=== PATIENT | male | born 1980 | race Two or more races ===

== ENCOUNTER 2024-07-28 17:30 | Inpatient (IN) | payer OTHER ==
[~2024-07-28] VITALS: Ht 180.3 cm; Wt 85.5 kg
[2024-07-28 18:20] LABS: BASOPHILS % (AUTO) 0.5 % (0.0-2.0); EOSINOPHILS % (AUTO) 0.3 % (1.0-6.0); HEMOGLOBIN 15.6 g/dL (13.5-17.5); LYMPHOCYTES # (AUTO) 2.8 K/uL (1.0-4.8); LYMPHOCYTES % (AUTO) 30.2 % (22.0-44.0); MEAN CORPUSCULAR HEMOGLOBIN 31.3 pg (26.0-34.0); MEAN CORPUSCULAR VOLUME 92 fL (80-100); MONOCYTES # (AUTO) 0.7 K/uL (0.1-1.0); MONOCYTES % (AUTO) 7.4 % (2.0-9.0); NEUTROPHILS # (AUTO) 5.8 K/uL (1.8-7.7); NEUTROPHILS % (AUTO) 61.6 % (40.0-70.0); PLATELET COUNT (AUTO) 254 K/uL (150-450); RED CELL DISTRIBUTION WIDTH 12.7 % (11.5-14.5); WHITE BLOOD COUNT (AUTO) 9.4 K/uL (4.5-11.0)
[2024-07-28 18:30] LABS: ALCOHOL, BLOOD (SERUM) < 3 mg/dL (0-10)
[2024-07-28 18:40] LABS: ANION GAP 7 mmol/L (8-16); CALCIUM, TOTAL 8.9 mg/dL (8.8-10.5); CARBON DIOXIDE 30 mmol/L (22-29); CHLORIDE 104 mmol/L (98-107); CREATININE 1.03 mg/dL (0.60-1.30); GLOMERULAR FILTR. RATE CALC > 60 mL/min (>60); GLUCOSE,RANDOM 146 mg/dL (70-110); POTASSIUM 4.3 mmol/L (3.5-5.1); SODIUM SERUM 141 mmol/L (136-145); UREA NITROGEN, BLOOD 25 mg/dL (7-18)
[2024-07-28 18:55] LABS: COVID AG,FIA SOURCE NASAL SWAB
[2024-07-28] MEDS ORDERED: MAGNESIUM HYDROXIDE SUSPENSION 30 ML UDCUP PO PRN (19:00)
[2024-07-28] MEDS ORDERED: ZOLPIDEM TARTRATE 5 MG TABLET PO PRN (19:00)
[2024-07-28] MEDS ORDERED: ACETAMINOPHEN 325 MG TABLET PO PRN (19:00)
[2024-07-28 19:12] LABS: SARS-COV2 (COVID) ANTIGEN,FIA Negative (Negative)
[2024-07-28 21:43] VITALS: BP 126/70; PULSE 59; RESP 18; TEMP 97.9; O2SAT 98
[2024-07-29 03:36] LABS: APPEARANCE,URINE TURBID (CLEAR); BILIRUBIN,URINE NEGATIVE (NEGATIVE); COLOR,URINE YELLOW (YELLOW); GLUCOSE, URINE (UA) NEGATIVE (NEGATIVE); KETONES,URINE NEGATIVE (NEGATIVE); LEUKOCYTE ESTERASE ,URINE NEGATIVE (NEGATIVE); NITRATE,URINE NEGATIVE (NEGATIVE); OCCULT BLOOD,URINE NEGATIVE (NEGATIVE); PROTEIN,URINE TRACE mg/dL (NEGATIVE); SPECIFIC GRAVITIY, URINE 1.028 (1.003-1.030); UROBILINOGEN,URINE <=1.0 mg/dL (<=1.0)
[2024-07-29 03:44] LABS: ALCOHOL, URINE DRUG SCREEN NEGATIVE (NEGATIVE); AMPHET/METH SCREEN,URINE NEGATIVE (NEGATIVE); BARBITURATE SCREEN, URINE NEGATIVE (NEGATIVE); BENZODIAZEPINES SCREEN,URINE NEGATIVE (NEGATIVE); CANNABINOID SCREEN,URINE NEGATIVE (NEGATIVE); COCAINE SCREEN,URINE NEGATIVE (NEGATIVE); METHADONE SCREEN, URINE NEGATIVE (NEGATIVE); OPIATE SCREEN,URINE NEGATIVE (NEGATIVE); PHENCYCLIDINE SCREEN,URINE NEGATIVE (NEGATIVE)
[2024-07-29 04:05] VITALS: BP 116/67; PULSE 58; RESP 18; TEMP 97.7; O2SAT 97
[2024-07-29] MEDS: FAMOTIDINE 20 MG TABLET PO SCH (08:37)
[2024-07-29 09:10] VITALS: BP 122/68; PULSE 62; RESP 18; TEMP 97.9; O2SAT 96
[2024-07-29] MEDS ORDERED: DiphenhydrAMINE HCL 50 MG/ML VIAL ONE (11:30)
[2024-07-29] MEDS ORDERED: LORazepam 2 MG/ML VIAL ONE (11:30)
[2024-07-29] MEDS ORDERED: CITA10TA99 PO (12:03)
[2024-07-29] MEDS ORDERED: HYDR50CA7 PO (12:04)
[2024-07-29] MEDS: DiphenhydrAMINE HCL 50 MG/ML VIAL IM ONE (12:26)
[2024-07-29] MEDS: ChlorproMAZINE HCL 50 MG/2 ML AMP IM ONE (12:26)
[2024-07-29] MEDS: LORazepam 2 MG/ML VIAL IM ONE (12:26)
[2024-07-29 21:31] VITALS: BP 106/73; PULSE 88; RESP 17; TEMP 97.6; O2SAT 95
[2024-07-30 05:45] VITALS: BP 125/80; PULSE 69; RESP 18; TEMP 97.9; O2SAT 98
[2024-07-30] MEDS: KETOROLAC TROMETHAMINE 30 MG/ML VIAL IVP ONE (14:41)
[2024-07-30] MEDS ORDERED: CITA10TA99 PO (15:27)
[2024-07-30] MEDS ORDERED: HYDR50CA7 PO (15:28)
[2024-07-30] MEDS ORDERED: IBUP-2124 PO (15:34)
[2024-07-30] MEDS ORDERED: IBUP-2342 PO (15:36)
[2024-07-30] MEDS: DiphenhydrAMINE HCL 50 MG/ML VIAL IM ONE (16:42)
[2024-07-30] MEDS: HALOPERIDOL LACTATE 5 MG/ML VIAL IM ONE (16:44)
[2024-07-30] MEDS: LORazepam 2 MG/ML VIAL IM ONE (16:45)
== END 2024-07-30 22:00 | DRG 885 ==
LOC: EMS 17:30 → EDH 18:58 → 6S 20:40 → 6N 07-29 18:25
PROVIDERS: ADMIT Internal Medicine; ATTEND Internal Medicine
PROC: GZ56ZZZ Individual Psychotherapy, Supportive (ICD-10-PCS; principal; 2024-07-29)
DX: F25.1 Schizoaffective disorder, depressive type (principal); R45.851 Suicidal ideations; I10 Essential (primary) hypertension; Z20.822 Contact with and (suspected) exposure to COVID-19; F43.10 Post-traumatic stress disorder, unspecified
CPT/HCPCS: 73218; 80048; 80307; 81003; 85025; 99285; G0480; J1200; J1630; J1885; J2060; J3230

== ENCOUNTER 2024-08-07 15:51 | Inpatient (IN) | payer OTHER ==
[~2024-08-07] VITALS: Ht 177.8 cm; Wt 85.0 kg
[~2024-08-07 15:51] MED LIST: CITA10TA99 PO; HYDR50CA7 PO; IBUP-2342 PO
[2024-08-07] MEDS: BACITRACIN 0.9 GM PACKET OINTMENT TP ONE (17:23)
[2024-08-07] MEDS: HydrOXYzine PAMOATE 50 MG CAPSULE PO ONE (17:23)
[2024-08-07 18:07] LABS: BASOPHILS % (AUTO) 0.4 % (0.0-2.0); EOSINOPHILS % (AUTO) 0.6 % (1.0-6.0); HEMATOCRIT 40.8 % (41-53); HEMOGLOBIN 14.1 g/dL (13.5-17.5); LYMPHOCYTES # (AUTO) 3.2 K/uL (1.0-4.8); MEAN CORPUSCULAR HEMOGLOBIN 31.8 pg (26.0-34.0); MEAN CORPUSCULAR HGB CONC 34.4 G/dL (31.0-37.0); MEAN CORPUSCULAR VOLUME 92 fL (80-100); MONOCYTES # (AUTO) 1.2 K/uL (0.1-1.0); MONOCYTES % (AUTO) 11.6 % (2.0-9.0); NEUTROPHILS % (AUTO) 57.4 % (40.0-70.0); PLATELET COUNT (AUTO) 242 K/uL (150-450); RED BLOOD CELL COUNT(AUTO) 4.42 MIL/uL (4.50-5.90); RED CELL DISTRIBUTION WIDTH 13.1 % (11.5-14.5); WHITE BLOOD COUNT (AUTO) 10.5 K/uL (4.5-11.0)
[2024-08-07 18:11] LABS: ANION GAP 9 mmol/L (8-16); CALCIUM, TOTAL 8.6 mg/dL (8.8-10.5); CARBON DIOXIDE 26 mmol/L (22-29); CHLORIDE 104 mmol/L (98-107); CREATININE 1.05 mg/dL (0.60-1.30); GLOMERULAR FILTR. RATE CALC > 60 mL/min (>60); GLUCOSE,RANDOM 139 mg/dL (70-110); POTASSIUM 3.6 mmol/L (3.5-5.1); SODIUM SERUM 139 mmol/L (136-145); UREA NITROGEN, BLOOD 19 mg/dL (7-18)
[2024-08-07 18:13] LABS: ALCOHOL, BLOOD (SERUM) < 3 mg/dL (0-10)
[2024-08-07] MEDS ORDERED: ONDANSETRON HCL 4 MG/2 ML VIAL IVP PRN (18:45)
[2024-08-07] MEDS: ACETAMINOPHEN 325 MG TABLET PO PRN (19:16)
[2024-08-07] MEDS: DOCUSATE SODIUM 100 MG CAPSULE PO SCH (21:00)
[2024-08-07 22:00] VITALS: BP 132/82; PULSE 70; RESP 20; TEMP 97.8; O2SAT 95
[2024-08-07] MEDS: HEPARIN SODIUM,PORCINE 5,000 UNITS/ML VIAL SQ SCH (23:30)
[2024-08-08 01:32] LABS: AMPHET/METH SCREEN,URINE NEGATIVE (NEGATIVE); BARBITURATE SCREEN, URINE NEGATIVE (NEGATIVE); BENZODIAZEPINES SCREEN,URINE NEGATIVE (NEGATIVE); CANNABINOID SCREEN,URINE NEGATIVE (NEGATIVE); COCAINE SCREEN,URINE NEGATIVE (NEGATIVE); METHADONE SCREEN, URINE NEGATIVE (NEGATIVE); OPIATE SCREEN,URINE NEGATIVE (NEGATIVE); PHENCYCLIDINE SCREEN,URINE NEGATIVE (NEGATIVE)
[2024-08-08 01:39] LABS: ALCOHOL, URINE DRUG SCREEN NEGATIVE (NEGATIVE)
[2024-08-08 04:29] VITALS: BP 110/76; PULSE 57; RESP 18; TEMP 97.7; O2SAT 96
[2024-08-08 06:33] LABS: BASOPHILS % (AUTO) 0.6 % (0.0-2.0); EOSINOPHILS % (AUTO) 2.7 % (1.0-6.0); HEMATOCRIT 41.3 % (41-53); HEMOGLOBIN 14.1 g/dL (13.5-17.5); LYMPHOCYTES # (AUTO) 3.3 K/uL (1.0-4.8); LYMPHOCYTES % (AUTO) 47.6 % (22.0-44.0); MEAN CORPUSCULAR HEMOGLOBIN 31.5 pg (26.0-34.0); MEAN CORPUSCULAR VOLUME 93 fL (80-100); MONOCYTES % (AUTO) 14.5 % (2.0-9.0); NEUTROPHILS # (AUTO) 2.4 K/uL (1.8-7.7); NEUTROPHILS % (AUTO) 34.6 % (40.0-70.0); PLATELET COUNT (AUTO) 237 K/uL (150-450); RED BLOOD CELL COUNT(AUTO) 4.47 MIL/uL (4.50-5.90); RED CELL DISTRIBUTION WIDTH 12.8 % (11.5-14.5)
[2024-08-08 06:40] LABS: ANION GAP 7 mmol/L (8-16); CALCIUM, TOTAL 8.6 mg/dL (8.8-10.5); CARBON DIOXIDE 29 mmol/L (22-29); CHLORIDE 105 mmol/L (98-107); CREATININE 0.98 mg/dL (0.60-1.30); GLOMERULAR FILTR. RATE CALC > 60 mL/min (>60); GLUCOSE,RANDOM 86 mg/dL (70-110); SODIUM SERUM 141 mmol/L (136-145); UREA NITROGEN, BLOOD 19 mg/dL (7-18)
[2024-08-08 08:08] VITALS: BP 120/77; PULSE 57; RESP 18; TEMP 97.9; O2SAT 98
[2024-08-08] MEDS: OLANZapine 5 MG TABLET PO SCH (13:43)
[2024-08-08] MEDS: CITALOPRAM HYDROBROMIDE 20 MG TABLET PO SCH (13:45)
[2024-08-08 16:46] VITALS: BP 113/75; PULSE 59; RESP 18; TEMP 97.8; O2SAT 100
[2024-08-08 19:24] VITALS: BP 119/81; PULSE 72; RESP 20; TEMP 98; O2SAT 97
[2024-08-08] MEDS: MELATONIN 3 MG TABLET PO PRN (20:32)
[2024-08-09 04:54] VITALS: BP 109/72; PULSE 53; RESP 20; TEMP 98.1; O2SAT 98
[2024-08-09 08:05] VITALS: BP 116/72; PULSE 77; RESP 18; TEMP 98; O2SAT 98
[2024-08-09 19:38] VITALS: BP 114/72; PULSE 74; RESP 18; TEMP 97.7; O2SAT 96
[2024-08-10 04:25] VITALS: BP 115/70; PULSE 60; RESP 19; TEMP 97.4; O2SAT 96
[2024-08-10 07:55] VITALS: BP 119/82; PULSE 60; RESP 18; TEMP 97.8; O2SAT 100
[2024-08-10] MEDS ORDERED: CITA-144 PO (11:01)
[2024-08-10] MEDS ORDERED: OLAN5TAB52 PO (11:01)
== END 2024-08-10 19:10 | DRG 641 ==
LOC: EMS 15:51 → EDH 18:43 → 6N 21:35
PROVIDERS: ADMIT Internal Medicine; ATTEND Internal Medicine
PROC: GZ52ZZZ Individual Psychotherapy, Cognitive (ICD-10-PCS; principal; 2024-08-10)
DX: R73.9 Hyperglycemia, unspecified (principal); F25.1 Schizoaffective disorder, depressive type; S51.812A Laceration without foreign body of left forearm, initial encounter; X58.XXXA Exposure to other specified factors, initial encounter; Y93.89 Activity, other specified; Y92.89 Other specified places as the place of occurrence of the external cause; Y99.8 Other external cause status; Z79.899 Other long term (current) drug therapy
CPT/HCPCS: 80048; 80307; 83735; 85025; 87081; 99285; G0480; J1644

== ENCOUNTER 2024-08-14 11:34 | Inpatient (IN) | payer OTHER ==
[~2024-08-14] VITALS: Ht 177.8 cm; Wt 84.1 kg
[~2024-08-14 11:34] MED LIST changes: +CITA-144 PO; -CITA10TA99 PO; -HYDR50CA7 PO; -IBUP-2342 PO; +OLAN5TAB52 PO
[2024-08-14 12:39] LABS: BASOPHILS % (AUTO) 0.6 % (0.0-2.0); EOSINOPHILS % (AUTO) 0.8 % (1.0-6.0); HEMATOCRIT 41.5 % (41-53); HEMOGLOBIN 14.2 g/dL (13.5-17.5); LYMPHOCYTES # (AUTO) 2.6 K/uL (1.0-4.8); LYMPHOCYTES % (AUTO) 28.6 % (22.0-44.0); MEAN CORPUSCULAR HEMOGLOBIN 31.5 pg (26.0-34.0); MEAN CORPUSCULAR HGB CONC 34.1 G/dL (31.0-37.0); MEAN CORPUSCULAR VOLUME 92 fL (80-100); MONOCYTES # (AUTO) 0.9 K/uL (0.1-1.0); MONOCYTES % (AUTO) 9.4 % (2.0-9.0); NEUTROPHILS # (AUTO) 5.6 K/uL (1.8-7.7); NEUTROPHILS % (AUTO) 60.6 % (40.0-70.0); PLATELET COUNT (AUTO) 275 K/uL (150-450); RED CELL DISTRIBUTION WIDTH 13.1 % (11.5-14.5); WHITE BLOOD COUNT (AUTO) 9.2 K/uL (4.5-11.0)
[2024-08-14 12:52] LABS: ANION GAP 9 mmol/L (8-16); CALCIUM, TOTAL 8.7 mg/dL (8.8-10.5); CARBON DIOXIDE 28 mmol/L (22-29); CHLORIDE 103 mmol/L (98-107); CREATININE 1.09 mg/dL (0.60-1.30); GLOMERULAR FILTR. RATE CALC > 60 mL/min (>60); GLUCOSE,RANDOM 108 mg/dL (70-110); POTASSIUM 4.2 mmol/L (3.5-5.1); SODIUM SERUM 140 mmol/L (136-145); UREA NITROGEN, BLOOD 19 mg/dL (7-18)
[2024-08-14] MEDS ORDERED: BUPR-344 PO (12:53)
[2024-08-14 12:56] LABS: ALCOHOL, BLOOD (SERUM) < 3 mg/dL (0-10)
[2024-08-14 12:58] LABS: COVID AG,FIA SOURCE NASAL SWAB
[2024-08-14] MEDS ORDERED: BUPR-559 PO (12:58)
[2024-08-14] MEDS ORDERED: BUPR-433 PO (13:00)
[2024-08-14] MEDS: ACETAMINOPHEN 500 MG TABLET PO ONE (13:02)
[2024-08-14] MEDS: PERTUSS(ACELL),DIPH,TET/PF 0.5 ML SYRINGE [ADULT] IM. ONE (13:03)
[2024-08-14] MEDS: BuPROPion HCL 150 MG SR TABLET PO ONE (13:03)
[2024-08-14] MEDS: BACITRACIN 0.9 GM PACKET OINTMENT TP ONE (13:03)
[2024-08-14] MEDS: HydrOXYzine PAMOATE 50 MG CAPSULE PO ONE (13:03)
[2024-08-14] MEDS: CITALOPRAM HYDROBROMIDE 10 MG TABLET PO ONE (13:03)
[2024-08-14 13:27] LABS: SARS-COV2 (COVID) ANTIGEN,FIA Negative (Negative)
[2024-08-14] MEDS ORDERED: ONDANSETRON HCL 4 MG/2 ML VIAL IVP PRN (15:00)
[2024-08-14] MEDS ORDERED: MAGNESIUM HYDROXIDE SUSPENSION 30 ML UDCUP PO PRN (15:00)
[2024-08-14] MEDS ORDERED: BISACODYL 10 MG RECTAL RECTAL SUPPOSITORY PR PRN (15:00)
[2024-08-14] MEDS: HEPARIN SODIUM,PORCINE 5,000 UNITS/ML VIAL SQ SCH (15:05)
[2024-08-14] MEDS: DOCUSATE SODIUM 100 MG CAPSULE PO SCH (20:10)
[2024-08-14] MEDS: OLANZapine 5 MG TABLET PO SCH (21:30)
[2024-08-14 22:57] VITALS: BP 128/85; PULSE 61; RESP 17; TEMP 97.8; O2SAT 98
[2024-08-15 04:24] VITALS: BP 111/69; PULSE 63; RESP 18; TEMP 97.7; O2SAT 97
[2024-08-15 06:01] LABS: AMPHET/METH SCREEN,URINE NEGATIVE (NEGATIVE); BARBITURATE SCREEN, URINE NEGATIVE (NEGATIVE); BENZODIAZEPINES SCREEN,URINE NEGATIVE (NEGATIVE); CANNABINOID SCREEN,URINE NEGATIVE (NEGATIVE); COCAINE SCREEN,URINE NEGATIVE (NEGATIVE); METHADONE SCREEN, URINE NEGATIVE (NEGATIVE); OPIATE SCREEN,URINE NEGATIVE (NEGATIVE); PHENCYCLIDINE SCREEN,URINE NEGATIVE (NEGATIVE)
[2024-08-15 06:02] LABS: ALCOHOL, URINE DRUG SCREEN NEGATIVE (NEGATIVE)
[2024-08-15 07:30] VITALS: BP 124/85; PULSE 61; RESP 20; TEMP 97.4; O2SAT 97
[2024-08-15] MEDS: PANTOPRAZOLE SODIUM 40 MG DR TABLET PO SCH (08:12)
[2024-08-15] MEDS: CITALOPRAM HYDROBROMIDE 20 MG TABLET PO SCH (08:13)
[2024-08-15] MEDS ORDERED: BuPROPion HCL 150 MG SR TABLET PO SCH (09:00)
[2024-08-15] MEDS: ACETAMINOPHEN 325 MG TABLET PO PRN (14:27)
[2024-08-15 16:17] VITALS: BP 122/78; PULSE 65; RESP 18; TEMP 97.9; O2SAT 97
[2024-08-15 19:30] VITALS: BP 122/79; PULSE 60; RESP 18; TEMP 97.7; O2SAT 96
[2024-08-15] MEDS: ZOLPIDEM TARTRATE 5 MG TABLET PO PRN (21:53)
[2024-08-16 04:30] VITALS: BP 122/78; PULSE 61; RESP 18; TEMP 97.8; O2SAT 96
[2024-08-16 07:40] VITALS: BP_SYST 123; BP_SYST 125; BP_DIAS 67; BP_DIAS 82; PULSE 70; RESP 18; TEMP 97.7; O2SAT 98
[2024-08-16 20:03] VITALS: BP 111/79; PULSE 74; RESP 20; TEMP 97.6; O2SAT 98
[2024-08-17 04:33] VITALS: BP 120/74; PULSE 57; RESP 18; TEMP 97.5; O2SAT 97
[2024-08-17 08:00] VITALS: BP 122/88; PULSE 58; RESP 17; TEMP 98.1; O2SAT 100
[2024-08-17 19:56] VITALS: BP 115/53; PULSE 63; RESP 18; TEMP 98.4; O2SAT 96
[2024-08-17] MEDS: OLANZapine 10 MG TABLET PO SCH (20:24)
[2024-08-18 05:08] VITALS: BP 101/61; PULSE 79; RESP 18; TEMP 97.9; O2SAT 98
[2024-08-18] MEDS: OLANZapine 5 MG TABLET PO SCH (09:41)
[2024-08-18 19:42] VITALS: BP 113/68; PULSE 67; RESP 18; TEMP 98.3; O2SAT 100
[2024-08-19 04:47] VITALS: BP 122/89; PULSE 61; RESP 18; TEMP 97.5; O2SAT 98
[2024-08-19 07:30] VITALS: BP 141/81; PULSE 65; RESP 18; TEMP 97.5; O2SAT 99
[2024-08-19] MEDS ORDERED: BACI28.410 TP (13:02)
[2024-08-19] MEDS ORDERED: OLAN10TA74 PO (13:04)
== END 2024-08-19 18:50 | DRG 885 ==
LOC: EMS 12:28 → EDH 14:49 → 6S 22:20
PROVIDERS: ADMIT Internal Medicine; ATTEND Internal Medicine
DX: F25.0 Schizoaffective disorder, bipolar type (principal); R45.851 Suicidal ideations; F11.20 Opioid dependence, uncomplicated; F43.10 Post-traumatic stress disorder, unspecified; S60.512A Abrasion of left hand, initial encounter; S60.511A Abrasion of right hand, initial encounter; Z79.899 Other long term (current) drug therapy; X83.8XXA Intentional self-harm by other specified means, initial encounter; Y93.89 Activity, other specified; Y92.89 Other specified places as the place of occurrence of the external cause; Y99.8 Other external cause status
CPT/HCPCS: 80048; 80307; 85025; 90471; 90715; 99285; G0480; J1644